=== PATIENT | female | born 1995 | race Caucasian/White ===

== ENCOUNTER 2016-12-31 17:02 | Emergency (ER) | payer SELFPAY ==
[~2016-12-31] VITALS: Ht 161.3 cm; Wt 97.5 kg
[~2016-12-31 17:02] MED LIST: IBUP-1050 PO
[2016-12-31 17:11] VITALS: TEMP 37.2; Ht 161.3 cm; Wt 97.5 kg
[2016-12-31] MEDS ORDERED: KETOROLAC TROMETHAMINE 30 MG/ML VIAL IV STA (18:50)
[2016-12-31] MEDS ORDERED: SODIUM CHLORIDE 0.9% 1000ML 1,000 ML IV STA (18:50)
[2016-12-31] MEDS ORDERED: ONDANSETRON INJ 2 MG/ML 2 ML VIAL IV STA (18:50)
[2016-12-31] MEDS ORDERED: SUCR1TAB29 PO (19:09)
[2016-12-31 19:38] LABS: BASO % 0.4 %; BASO ABS # 0.04 K/uL (0-0.2); COMPLETE YES; EOS % 3.2 %; HEMATOCRIT 40.5 % (37-47); IG% 0.1 %; LYMPH ABS # 3.31 K/uL (1.2-3.4); MEAN CELL VOLUME 89.2 fL (80-100); MEAN CORPUSCULAR HEMOGLOBIN 30.6 pg (25-34); MEAN CORPUSCULAR HGB CONC 34.3 g/dl (32-36); MEAN PLATELET VOLUME 10.4 fL (7.4-10.4); MONO % 6.3 %; PLATELET COUNT 277 K/uL (130-400); RED BLOOD COUNT 4.54 M/uL (4.2-5.4); WHITE BLOOD COUNT 9.46 K/uL (4.8-10.8)
[2016-12-31 19:40] LABS: URINE APPEARANCE TURBID (CLEAR); URINE BILIRUBIN NEG (NEG); URINE COLOR YELLOW; URINE EPITHELIAL CELL AUTO >30 /lpf (0-5); URINE NITRITE NEG (NEG); URINE PH 8.5 (4.5-7.5); URINE SPECIFIC GRAVITY 1.026 (1.000-1.030); UROBILINOGEN NEG (NEG); ZZUR CULT IF INDIC CLEAN CATCH YES
[2016-12-31 19:43] LABS: MANUAL MICROSCOPIC REQUIRED? NO; REVIEW REQ? YES
[2016-12-31 19:48] LABS: PARTIAL THROMBOPLASTIN RATIO 1.1; PROTHROMBIN TIME (PATIENT) 10.9 SECONDS (9.0-12.0)
[2016-12-31 19:50] LABS: SULFASALICYLIC ACID POS (NEG)
[2016-12-31 19:54] LABS: ALT/SGPT 16 U/L (12-78); BLOOD UREA NITROGEN 12 mg/dl (7-18); BUN/CREATININE RATIO 21.3 (10-20); CALCIUM 8.7 mg/dl (8.5-10.1); CARBON DIOXIDE 25 mmol/L (21-32); CHLORIDE 108 mmol/L (98-107); CREATININE 0.56 mg/dl (0.60-1.20); GLUCOSE 83 mg/dl (70-99); POTASSIUM 3.7 mmol/L (3.5-5.1); SODIUM 141 mmol/L (136-145)
[2016-12-31 19:57] LABS: ALKALINE PHOSPHATASE 62 U/L (45-117); AST/SGOT 10 U/L (15-37)
--- NOTE | 2016-12-31 19:58 | DIAGNOSTIC IMAGING REPORT ---
CHEST ONE VIEW PORTABLE HISTORY: Generalized abdominal pain. COMPARISON: None. FINDINGS: The lungs are clear. Cardiac silhouette is normal in size. No pleural effusions. No pneumothorax. IMPRESSION: No acute process. Electronically signed by: Bo Whitehead M.D. 12/31/2016 7:56 PM Dictated Date/Time: 12/31/2016 7:56 PM
--- NOTE | 2016-12-31 20:20 | DIAGNOSTIC IMAGING REPORT ---
ABDOMEN AND PELVIS CT WITHOUT CONTRAST CT DOSE: 1013.96 mGycm HISTORY: Generalized abdominal pain. Left-sided abdominal pain. TECHNIQUE: Multiaxial CT images of the abdomen and pelvis were performed without contrast. COMPARISON STUDY: Abdomen and pelvis CT 09/04/2016. FINDINGS: The lung bases are clear. No bowel wall thickening or obstruction. Normal appendix. The ovaries are stable in size. Trace pelvic free fluid is likely physiologic. The bladder is now well-distended but appears unremarkable. A few punctate calcifications in the deep pelvis likely represent phleboliths. The unenhanced liver, gallbladder, pancreas, spleen, and adrenal glands are unremarkable. No left renal stones or hydronephrosis. There is a punctate stone within the lower pole of the right kidney. No right-sided hydronephrosis. IMPRESSION: 1. A punctate stone within the lower pole of the right kidney. No hydronephrosis. 2. No left renal or ureteral calculi. 3. No definite bowel wall thickening or obstruction.. Normal appendix. 5. Trace pelvic free fluid. This is likely physiologic. Electronically signed by: Bo Whitehead M.D. 12/31/2016 8:18 PM Dictated Date/Time: 12/31/2016 8:08 PM
[2016-12-31] MEDS ORDERED: NITR-5 PO (20:49)
--- NOTE | 2016-12-31 20:49 | EMERGENCY ROOM VISIT NOTE ---
History Report prepared by Kevin: Wilman Wild Under the Supervision of: Dr. Brock Kelly D.O. First contact with patient: 18:45 Chief Complaint: GI ASSESSMENT Stated Complaint: LF SIDE ABD PAIN,VOMITING BLOOD Nursing Triage Summary: Pt presents with left sided abd pain. "It feels tight and I have sharp, shooting pain through my whole left side. I am really constipated." N/V. States last BM was 1.5 weeks ago. Has tried Miralax and a suppository. Pain x 3 days. N/V began today. History of Present Illness The patient is a 21 year old female who presents to the Emergency Room with complaints of constant left sided abdominal pain beginning 3-4 days prior to arrival. She describes the pain as "shooting" and currently rates her discomfort as a 6/10 in severity. The patient associates constipation for a week and a half, nausea, vomiting, and fever with today's symptoms. She states her fever began this morning, and it was 102.5 F. The patient notes her abdominal pain worsens with coughing, laughing, and breathing. She denies anything making her discomfort better. The patient states she has intermittent episodes of similar abdominal pain for the past three years. She notes she has a history of acid reflux and GI bleeding for the past three years, as well. The patient states she has seen a GI doctor, but stated nothing was wrong. She notes she took ibuprofen without relief. The patient denies pain with urination or other urinary symptoms. 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 A total of 10 systems reviewed and were otherwise negative. Past Medical & Surgical Medical Problems: (1) DEPRESSIVE DISORDER NEC Family History Cancer Social History Smoking Status: Current Every Day Smoker Alcohol Use: none Drug Use: none Marital Status: single Occupation Status: employed Current/Historical Medications Scheduled Nitrofurantoin Monohyd Macrocr (Macrobid), 100 MG PO BID Sucralfate (Carafate), 1 GM PO ACHS Scheduled PRN Ibuprofen (Advil), 400 MG PO Q6H PRN for Pain Allergies Coded Allergies: Sulfa Drugs (Unverified Allergy, Intermediate, HIVES and RASH, 06/15/16) Physical Exam Vital Signs Date Time Temp Pulse Resp B/P Pulse Ox O2 Delivery O2 Flow Rate FiO2 12/31/16 19:26 86 16 122/68 99 Room Air 12/31/16 17:11 37.2 92 18 126/82 97 Room Air Physical Exam CONSTITUTIONAL/VITAL SIGNS: Reviewed / noted above. GENERAL: Non-toxic in appearance. INTEGUMENTARY: Warm, dry, and [place]. HEAD: Normocephalic. EYES: without scleral icterus or trauma. ENT/OROPHARYNX: clear and moist. LYMPHADENOPATHY/NECK: Is supple without lymphadenopathy or meningismus. RESPIRATORY: Lungs clear and equal. CARDIOVASCULAR: Regular rate and rhythm. GI/ABDOMEN: Soft and nontender. No organomegaly or pulsatile mass. No rebound or guarding. Normal bowel sounds. EXTREMITIES: Warm and well perfused. BACK: No CVA tenderness. NEUROLOGICAL: Intact without focal deficits. PSYCHIATRIC: normal affect. MUSCULOSKELETAL: Normally developed with good muscle tone. Medical Decision & Procedures ER Provider Diagnostic Interpretation: Radiology results as stated below per my review and radiologist interpretation: CHEST ONE VIEW PORTABLE HISTORY: Generalized abdominal pain. COMPARISON: None. FINDINGS: The lungs are clear. Cardiac silhouette is normal in size. No pleural effusions. No pneumothorax. IMPRESSION: No acute process. Electronically signed by: Bo Whitehead M.D. 12/31/2016 7:56 PM A[address]OMEN AND PELVIS CT WITHOUT CONTRAST CT DOSE: 1013.96 mGycm HISTORY: Generalized abdominal pain. Left-sided abdominal pain. TECHNIQUE: Multiaxial CT images of the abdomen and pelvis were performed without contrast. COMPARISON STUDY: Abdomen and pelvis CT 09/04/2016. FINDINGS: The lung bases are clear. No bowel wall thickening or obstruction. Normal appendix. The ovaries are stable in size. Trace pelvic free fluid is likely physiologic. The bladder is now well-distended but appears unremarkable. A few punctate calcifications in the deep pelvis likely represent phleboliths. The unenhanced liver, gallbladder, pancreas, spleen, and adrenal glands are unremarkable. No left renal stones or hydronephrosis. There is a punctate stone within the lower pole of the right kidney. No right-sided hydronephrosis. IMPRESSION: 1. A punctate stone within the lower pole of the right kidney. No hydronephrosis. 2. No left renal or ureteral calculi. 3. No definite bowel wall thickening or obstruction.. Normal appendix. 5. Trace pelvic free fluid. This is likely physiologic. Electronically signed by: Bo Whitehead M.D. 12/31/2016 8:18 PM Laboratory Results 12/31/16 19:15 Red Blood Count 4.54, Mean Corpuscular Volume 89.2, Mean Corpuscular Hemoglobin 30.6, Mean Corpuscular Hemoglobin Concent 34.3, Mean Platelet Volume 10.4, Neutrophils (%) (Auto) 55.0, Lymphocytes (%) (Auto) 35.0, Monocytes (%) (Auto) 6.3, Eosinophils (%) (Auto) 3.2, Basophils (%) (Auto) 0.4, Neutrophils # (Auto) 5.20, Lymphocytes # (Auto) 3.31, Monocytes # (Auto) 0.60, Eosinophils # (Auto) 0.30, Basophils # (Auto) 0.04 12/31/16 19:15 Test 12/31/16 19:05 12/31/16 19:15 Urine Color YELLOW Urine Appearance TURBID (CLEAR) Urine pH 8.5 (4.5-7.5) Urine Specific [place] 1.026 (1.000-1.030) Urine Protein TRACE (NEG) Urine Glucose (UA) NEG (NEG) Urine Ketones NEG (NEG) Urine Occult Blood NEG (NEG) Urine Nitrite NEG (NEG) Urine Bilirubin NEG (NEG) Urine Urobilinogen NEG (NEG) Urine Leukocyte Esterase LARGE (NEG) Urine WBC (Auto) >30 /hpf (0-5) Urine RBC (Auto) 5-10 /hpf (0-4) Urine Hyaline Casts (Auto) 5-10 /lpf (0-5) Urine Epithelial Cells (Auto) >30 /lpf (0-5) Urine Bacteria (Auto) 4+ (NEG) Urine Pathogenic Casts /lpf (0) Urine Test NEG (NEG) White Blood Count 9.46 K/uL (4.8-10.8) Red Blood Count 4.54 M/uL (4.2-5.4) Hemoglobin 13.9 g/dL (12.0-16.0) Hematocrit 40.5 % (37-47) Mean Corpuscular Volume 89.2 fL (80-100) Mean Corpuscular Hemoglobin 30.6 pg (25-34) Mean Corpuscular Hemoglobin Concent 34.3 g/dl (32-36) Platelet Count 277 K/uL (130-400) Mean Platelet Volume 10.4 fL (7.4-10.4) Neutrophils (%) (Auto) 55.0 % Lymphocytes (%) (Auto) 35.0 % Monocytes (%) (Auto) 6.3 % Eosinophils (%) (Auto) 3.2 % Basophils (%) (Auto) 0.4 % Neutrophils # (Auto) 5.20 K/uL (1.4-6.5) Lymphocytes # (Auto) 3.31 K/uL (1.2-3.4) Monocytes # (Auto) 0.60 K/uL (0.11-0.59) Eosinophils # (Auto) 0.30 K/uL (0-0.5) Basophils # (Auto) 0.04 K/uL (0-0.2) RDW Standard Deviation 41.5 fL (36.4-46.3) RDW Coefficient of Variation 12.8 % (11.5-14.5) Immature Granulocyte % (Auto) 0.1 % Immature Granulocyte # (Auto) 0.01 K/uL (0.00-0.02) Prothrombin Time 10.9 SECONDS (9.0-12.0) Prothromb Time International Ratio 1.0 (0.9-1.1) Activated Partial Thromboplast Time 28.2 SECONDS (21.0-31.0) Partial Thromboplastin Ratio 1.1 Anion Gap 8.0 mmol/L (3-11) Est Creatinine Clear Calc Drug Dose 178.5 ml/min Estimated GFR () > 150.0 Estimated GFR (Non- 133.3 BUN/Creatinine Ratio 21.3 (10-20) Calcium Level 8.7 mg/dl (8.5-10.1) Total Bilirubin 0.3 mg/dl (0.2-1) Direct Bilirubin 0.1 mg/dl (0-0.2) Aspartate Amino Transf (AST/SGOT) 10 U/L (15-37) Alanine Aminotransferase (ALT/SGPT) 16 U/L (12-78) Alkaline Phosphatase 62 U/L (45-117) Total Protein 7.5 gm/dl (6.4-8.2) Albumin 4.1 gm/dl (3.4-5.0) Lipase 88 U/L (73-393) Laboratory results as stated above per my review. Medications Administered Medications (Trade) Dose Ordered Sig/Joby Route Start Time Stop Time Status Last Admin Dose Admin Sodium Chloride (Nss 1000ml) 1,000 ml @ 999 mls/hr Q1H1M STAT IV 12/31/16 18:50 12/31/16 19:50 DC 12/31/16 19:33 999 MLS/HR Ondansetron HCl (Zofran Inj) 4 mg NOW STAT IV 12/31/16 18:50 12/31/16 18:52 DC 12/31/16 19:32 4 MG Ketorolac Tromethamine (Toradol Inj) 30 mg NOW STAT IV 12/31/16 18:50 12/31/16 18:52 DC 12/31/16 19:32 30 MG ED Course 184: Previous medical records were reviewed. The patient was evaluated in room A11B. A complete history and physical examination was performed. 1850: Ordered Toradol Inj 30 mg IV, Zofran Inj 4 mg IV, Sodium Chloride 1,000 ml @ 999 mls/hr IV. 2099: Ordered Macrobid Cap 100 mg PO. 2104: On reevaluation, the patient is doing well. I discussed the results and findings with the patient. She verbalized agreement of the treatment plan. The patient was discharged home. Medical Decision Differential considered: pancreatitis, hepatitis, or acute cholecystitis, AAA, UTI, pyelonephritis, kidney stones, appendicitis, diverticulitis, shingles, bowel obstruction mesenteric ischemia, intussusception,hernia, ovarian torsion, ruptured ovarian cyst,ectopic , . This is a 21-year-old female who presents to the ED with a chief complaint of a left-sided sharp abdominal pain that has been going on for the past 3-4 days. She also feels constipated and she has not had a bowel movement for a week and a half. The patient reports most of these issues as chronic issues. She states the pain is worse with cough and laughing. She states nothing makes it better. She reportedly fever this morning about 102.5. She states that she has had evaluation by GI specialist and they tell her nothing is wrong. These symptoms have been intermittent for several years. Her vital signs are normal. Physical exam did not reveal any tenderness. CT scan of the abdomen and pelvis was negative for acute disease. A chest x-ray was negative for acute disease. CBC and complete metabolic panel were unremarkable. Lipase is negative. test is negative. Urine appears contaminated but could reflect an infection. She was started on Macrobid by mouth. She was felt to be stable for discharge. Impression Primary Impression: UTI (urinary tract infection) Scribe Attestation The scribe's documentation has been prepared under my direction and personally reviewed by me in its entirety. I confirm that the note above accurately reflects all work, treatment, procedures, and medical decision making performed by me. Departure Information Dispostion Home / Self-Care Prescriptions Nitrofurantoin Monohyd Macrocr (Macrobid) 100 Mg Cap 100 MG PO BID, #6 CAP Prov: Brock Kelly D.O. 12/31/16 Referrals No Doctor, Assigned (PCP) Forms HOME CARE DOCUMENTATION FORM, IMPORTANT VISIT INFORMATION Patient Instructions My [facility], UTI Additional Instructions Macrobid as prescribed. Follow-up with your doctor for further care and evaluation in 1-2 days. Return to the emergency department for worsening or new symptoms or any concerns. You have been examined and treated today on an emergency basis only. This is not a substitute for, or an effort to provide, complete comprehensive medical care. It is impossible to recognize and treat all injuries or illnesses in a single emergency department visit. It is therefore important that you follow up closely with your doctor. Call as soon as possible for an appointment.
[2016-12-31] MEDS ORDERED: NITROFURANTOIN MONOHYDRATE 100 MG CAP PO ONE (21:00)
[2016-12-31 21:06] VITALS: BP 125/77; PULSE 81; O2SAT 96
== END 2016-12-31 21:12 | disposition home or self-care (01) ==
LOC: C.EDB 17:03 → C.EDA 21:12
DX: N39.0 Urinary tract infection, site not specified (principal); K59.00 Constipation, unspecified; K21.9 Gastro-esophageal reflux disease without esophagitis; F32.9 Major depressive disorder, single episode, unspecified; Z80.9 Family history of malignant neoplasm, unspecified; F17.210 Nicotine dependence, cigarettes, uncomplicated; Z79.899 Other long term (current) drug therapy

== ENCOUNTER 2017-05-22 19:23 | Emergency (ER) | payer SELFPAY ==
[~2017-05-22] VITALS: Ht 160 cm; Wt 98.9 kg
[~2017-05-22 19:23] MED LIST changes: +NITR-5 PO; +SUCR1TAB29 PO
[2017-05-22 19:32] VITALS: TEMP 36.8; Ht 160 cm; Wt 98.9 kg
[2017-05-22] MEDS ORDERED: HYDROCODONE/HOMATROPINE SYRUP 5MG/1.5MG 5ML UDP PO STA (19:41)
[2017-05-22] MEDS ORDERED: ALBUTEROL HFA 8 GM INHALER INH STA (19:41)
[2017-05-22] MEDS ORDERED: HYCODAN 60ML BOTTLE HOMEPACK PO STA (19:41)
[2017-05-22] MEDS ORDERED: ALBUT/IPRATROP 3MG/0.5MG NEB 3 ML VIAL INH STA (19:41)
[2017-05-22] MEDS ORDERED: DOXYCYCLINE HYCLATE 100 MG CAP PO STA (19:41)
--- NOTE | 2017-05-22 19:52 | EMERGENCY ROOM VISIT NOTE ---
ED Visit Note First contact with patient: 19:36 CHIEF COMPLAINT: cough HISTORY OF PRESENT ILLNESS: This 22 y/o female patient presents to the emergency department complaining of worsening cough which was gradual in onset the patient is coughing up green mucus. No fever or chills. Has recent URI symptoms. No chest pain. No nausea or vomiting. The patient has a history of pneumonia The patient has had a cough and green sputum production. REVIEW OF SYSTEMS: A review of systems was performed with positives and pertinent negatives listed in the history of present illness. All other systems were reviewed and are negative. ALLERGIES: Sulfa drugs MEDICATIONS: Carafate, Advil PMH: Ulcer, pneumonia SOCIAL HISTORY: 1/2 ppd smoker, unemployed, tonsils PHYSICAL EXAM: Vital Signs: Reviewed Nurse's notes. Oxygen saturation was 100% on room air. GENERAL: 22 y/o female, Alert, oriented and coherent. The patient is able to speak in complete sentences. NECK: Supple, non-tender. CHEST: Symmetrical expansion. No retractions No accessory muscle use. HEART: Regular rate and normal heart sounds, no murmur, gallop or rub. LUNGS: Breath sounds equal but significantly diminished in intensity on both sides. Bilateral wheezes heard but no rales or pleuritic rub. SKIN: Capillary refill less than 2 seconds. EXTREMITIES: No swelling, cyanosis or tenderness in the arms or legs. EMERGENCY DEPARTMENT COURSE: I examined the patient. The patient was given an albuterol/atrovent nebulizer treatment and had good improvement in the subjective state, and the breath sounds were louder and clearer on re-exam. Wheezes were decreased. Pt was also given Doxycyline and Hycodan. The patient was discharged in stable condition. DIAGNOSIS: Acute asthma exacerbation DISCHARGE INSTRUCTIONS AND TREATMENT: Problem List Medical Problems: (1) DEPRESSIVE DISORDER NEC Status: Chronic Current/Historical Medications Scheduled Nitrofurantoin Monohyd Macrocr (Macrobid), 100 MG PO BID Sucralfate (Carafate), 1 GM PO ACHS Scheduled PRN Ibuprofen (Advil), 400 MG PO Q6H PRN for Pain Allergies Coded Allergies: Sulfa Drugs (Unverified Allergy, Intermediate, HIVES and RASH, 06/15/16) Vital Signs Date Time Temp Pulse Resp B/P (MAP) Pulse Ox O2 Delivery O2 Flow Rate FiO2 05/22/17 19:34 98 Room Air 05/22/17 19:32 36.8 101 18 133/82 98 Room Air Departure Information Referrals No Doctor, Assigned (PCP) Patient Instructions [facility]
[2017-05-22] MEDS ORDERED: DOXY100C76 PO (19:59)
[2017-05-22 20:36] VITALS: BP 119/76; PULSE 103; O2SAT 99
--- NOTE | 2017-05-22 20:42 | DIAGNOSTIC IMAGING REPORT ---
CHEST ONE VIEW PORTABLE HISTORY: 22 years-old Female acute cough COMPARISON: Portable chest radiograph 12/31/2016 TECHNIQUE: Portable upright AP view of the chest FINDINGS: Cardiac silhouette is within normal limits. No pneumothorax, pleural effusion or focal airspace consolidation. Bones are grossly intact. IMPRESSION: Normal chest radiograph. The above report was generated using voice recognition software. It may contain grammatical, syntax or spelling errors. Electronically signed by: Royer Millan M.D. 05/22/2017 8:41 PM Dictated Date/Time: 05/22/2017 8:40 PM
== END 2017-05-22 20:37 | disposition home or self-care (01) ==
LOC: C.EDB 19:24 → C.EDC 20:37
DX: J45.901 Unspecified asthma with (acute) exacerbation (principal); F32.9 Major depressive disorder, single episode, unspecified; Z87.01 Personal history of pneumonia (recurrent); Z79.899 Other long term (current) drug therapy

== ENCOUNTER 2017-07-13 21:11 | Emergency (ER) | payer SELFPAY ==
[~2017-07-13] VITALS: Ht 161.3 cm; Wt 99.0 kg
[2017-07-13 21:22] VITALS: Ht 161.3 cm; Wt 99.0 kg
[2017-07-13] MEDS ORDERED: ACETAMINOPHEN 500 MG TAB PO STA (21:37)
[2017-07-13] MEDS ORDERED: ONDANSETRON HOME PACK 4MG OD TAB PO ONE (21:45)
[2017-07-13] MEDS ORDERED: ONDANSETRON 4MG OD TAB PO ONE (21:45)
--- NOTE | 2017-07-13 22:01 | DIAGNOSTIC IMAGING REPORT ---
CT SCAN OF THE BRAIN WITHOUT IV CONTRAST CLINICAL HISTORY: Nausea and vomiting. Head injury. COMPARISON STUDY: MRI of the brain dated 06/15/2016. TECHNIQUE: Unenhanced axial CT scan of the brain is performed from the vertex to the skull base. A dose lowering technique was utilized adhering to the principles of ALARA. CT DOSE: 537.48 mGy.cm FINDINGS: Brain parenchyma: The brain parenchyma is normal in appearance. There is no hemorrhage, mass effect, or evidence of acute territorial ischemia by CT criteria. Chiang-white matter is preserved. No extra-axial fluid collection is seen. Ventricles, sulci, cisterns: Normal in configuration. Intracranial vasculature: The visualized intracranial vasculature at the skull base is normal in appearance. Calvarium: There is no depressed calvarial fracture. Sinuses and mastoids: Moderate mucosal thickening is seen in the left sphenoid sinus. Trace mucosal thickening is seen in the right seen on sinus. The remaining visualized paranasal sinuses are clear. The mastoid air cells are well pneumatized. Orbits: The bony orbits are grossly intact. IMPRESSION: No acute intracranial abnormality. Electronically signed by: Mukesh Duncan M.D. 07/13/2017 10:00 PM Dictated Date/Time: 07/13/2017 9:58 PM
--- NOTE | 2017-07-13 22:15 | DIAGNOSTIC IMAGING REPORT ---
RIGHT ELBOW 3 VIEWS CLINICAL HISTORY: Fall with right elbow pain. FINDINGS: 3 views of the right elbow are obtained. No prior studies are available for comparison at the time of dictation. The skeletal structures are well mineralized. There is no radiographic evidence of fracture. The joint spaces are well-maintained. There is no joint effusion. The overlying soft tissues are within normal limits. IMPRESSION: There is no radiographic evidence of right elbow fracture. Electronically signed by: Mukesh Duncan M.D. 07/13/2017 10:14 PM Dictated Date/Time: 07/13/2017 10:13 PM
[2017-07-13 22:39] VITALS: BP 132/76; PULSE 81; TEMP 37.2; O2SAT 98
--- NOTE | 2017-07-13 22:43 | EMERGENCY ROOM VISIT NOTE ---
History First contact with patient: 21:27 Chief Complaint: HEAD INJURY (MINOR) Stated Complaint: RIGHT ELBOW PAIN,HEAD PAIN,CONCUSSION SYMPTOMS History of Present Illness The patient is a 22 year old female who presents to the Emergency Room with complaints of head injury and right elbow pain after wrestling with her friend and hitting her head and landing on her right elbow. Patient had brief loss of consciousness. She states she's been having nausea and vomiting and lightheadedness since then started a few hours ago. No prior head injuries. No cardiac drugs today. Patient describe the headache as throbbing, ranging in severity 5 out of 10 throughout the head. Nothing makes it better or worse. Patient denies chest pain, dyspnea, neck pain, back pain, numbness, tingling, localized weakness, vision problems, balance problems, dental pain, facial pain or any other medical complaints. Review of Systems See HPI for pertinent positives & negatives. A total of 10 systems reviewed and were otherwise negative. Past Medical/Surgical History Medical Problems: (1) DEPRESSIVE DISORDER NEC Family History Cancer Social History Smoking Status: Current Every Day Smoker Alcohol Use: none Drug Use: none Marital Status: single Occupation Status: employed Current/Historical Medications No Active Prescriptions or Reported Meds Physical Exam Vital Signs Date Time Temp Pulse Resp B/P (MAP) Pulse Ox O2 Delivery O2 Flow Rate FiO2 07/13/17 21:50 18 07/13/17 21:22 37.2 85 18 98 Room Air Physical Exam PHYSICAL EXAM: VITALS: Vitals are noted on the nurse's note and reviewed by myself. Vital signs stable. GENERAL: Pleasant female, in no acute distress, nondiaphoretic, well-developed well-nourished. SKIN: The skin was without obvious lacerations or abrasions. Capillary reflex less than 2 seconds. HEAD: Normocephalic atraumatic. EARS: External auditory canals clear, tympanic membranes pearly chiang without erythema or effusion bilaterally. No hemotympanums. No villar sign. No mastoid tenderness. EYES: Pupils equal round and reactive to light and accommodation. Conjunctivae without injection, sclerae without icterus. Extraocular movements intact. NOSE: Patent, turbinates without inflammation or discharge. No sinus tenderness. No septal hematoma or bleeding. FACE: No facial bone tenderness. Full range of motion of the jaw without tenderness. MOUTH: Mucous membranes moist. Pharynx without erythema or exudate. Uvula midline. Airway patent. Tongue does not deviate. NECK: Supple without nuchal rigidity. Cervical spine is nontender. Full range of motion of the neck without tenderness. No JVD. HEART: Regular rate and rhythm without murmurs gallops or rubs. LUNGS: Clear to auscultation bilaterally without wheezes, rales or rhonchi. No dullness to percussion. No retractions or accessory muscle use. No chest wall tenderness. ABDOMEN: Positive bowel sounds x 4. Normal tympanic percussion. Soft, nontender, without masses or organomegaly. No guarding or rebound tenderness. MUSCULOSKELETAL: No tenderness of the thoracic or lumbar spine. Right elbow tender to palpation with increased pain with range of motion, Full range of motion without tenderness to palpation in all other extremities. Strength 4/5 in the right upper extremity, Normal gait. Strength 5/5 throughout. Radial pulses equal present bilaterally, 2+. NEURO: Patient was alert and oriented to person place and time. Normal Mini- Mental status exam. Normal sensation to light and sharp touch. Negative Romberg and pronator drift. Cerebellar function intact. No focal neurological deficits. Medical Decision & Procedures Medications Administered Medications (Trade) Dose Ordered Sig/Joby Route Start Time Stop Time Status Last Admin Dose Admin Acetaminophen (Tylenol Tab) 1,000 mg NOW STAT PO 07/13/17 21:37 07/13/17 21:38 DC 07/13/17 21:43 1,000 MG Ondansetron HCl (Zofran Odt) 4 mg ONE ONCE PO 07/13/17 21:45 07/13/17 21:46 DC 07/13/17 21:43 4 MG Ondansetron HCl (ZOFRAN ODT 4MG Home Pack) 1 homepack UD ONCE PO 07/13/17 21:45 07/13/17 21:46 DC 07/13/17 22:31 1 HOMEPACK ED Course Prior records/ancillary studies reviewed. Triage Nursing notes reviewed. Additional history obtained from friends. The patient's history was concerning for traumatic head injury and elbow injury Differential diagnosis: Etiologies such as concussion, contusion, fracture, subdural hematoma, epidural hematoma, intraparenchymal hemorrhage, as well as other traumatic pathologies were entertained. Physical examination findings: As above. ER treatment provided: P.o. Tylenol Zofran ODT On reassessment the patient felt better. Diagnostics interpreted by me: Imaging studies: RIGHT ELBOW 3 VIEWS CLINICAL HISTORY: Fall with right elbow pain. FINDINGS: 3 views of the right elbow are obtained. No prior studies are available for comparison at the time of dictation. The skeletal structures are well mineralized. There is no radiographic evidence of fracture. The joint spaces are well-maintained. There is no joint effusion. The overlying soft tissues are within normal limits. IMPRESSION: There is no radiographic evidence of right elbow fracture. Electronically signed by: Mukesh Duncan M.D. CT SCAN OF THE BRAIN WITHOUT IV CONTRAST CLINICAL HISTORY: Nausea and vomiting. Head injury. COMPARISON STUDY: MRI of the brain dated 06/15/2016. TECHNIQUE: Unenhanced axial CT scan of the brain is performed from the vertex to the skull base. A dose lowering technique was utilized adhering to the principles of ALARA. CT DOSE: 537.48 mGy.cm FINDINGS: Brain parenchyma: The brain parenchyma is normal in appearance. There is no hemorrhage, mass effect, or evidence of acute territorial ischemia by CT criteria. Chiang-white matter is preserved. No extra-axial fluid collection is seen. Ventricles, sulci, cisterns: Normal in configuration. Intracranial vasculature: The visualized intracranial vasculature at the skull base is normal in appearance. Calvarium: There is no depressed calvarial fracture. Sinuses and mastoids: Moderate mucosal thickening is seen in the left sphenoid sinus. Trace mucosal thickening is seen in the right seen on sinus. The remaining visualized paranasal sinuses are clear. The mastoid air cells are well pneumatized. Orbits: The bony orbits are grossly intact. IMPRESSION: No acute intracranial abnormality. Electronically signed by: Mukesh Duncan M.D. 07/13/2017 10:00 PM Dictated Date/Time: 07/13/2017 9:58 PM It appears the patient has a concussion and elbow injury. I discussed the risks and the benefits of CT scanning. I gave my usual and customary discussion regarding this issue. Patient unremarkable workup as above. She is counseled on head injury signs and symptoms and on the concussion clinic. She is comfortable elbow injuries. She is placed in a sling and neurovascular status is rechecked after placement and is intact. She is advised to take her arm out every few hours and do range of motion exercises as not to develop a frozen shoulder. She is advised to follow-up with family care or concussion clinic this week or here in the ER sooner for headache, fevers, confusion, worsening signs or symptoms or as needed. By the evaluation outlined above emergent etiologies such as fracture, subdural hematoma, epidural hematoma, intraparenchymal hemorrhage, as well as others were deemed relatively unlikely. The pt informed about the findings as listed above. All questions were answered and pleased with the treatment. Return instructions were outlined and the patient was discharged in stable condition. Outpatient Prescription Management: Ian Referral: The patient was referred back to their primary care physician and concussion clinic for follow-up in 2 to 3 days for a recheck of the current condition. Medical Decision as above Head Trauma GCS Score: 15 Medication Reconcilliation Current Medication List: was personally reviewed by me Blood Pressure Screening Patient's blood pressure: Normal blood pressure Impression Primary Impression: Concussion Additional Impression: right elbow injury Departure Information Dispostion Home / Self-Care Condition GOOD Prescriptions No Active Prescriptions or Reported Meds Forms HOME CARE DOCUMENTATION FORM, Work Instructions, Return To Work: 1 day IMPORTANT VISIT INFORMATION Patient Instructions [facility], ED Concussion Additional Instructions Ice compresses for 20 minutes at a time four times daily for 2-3 days. Use the sling as instructed. Remove your arm from the sling 4-6 times a day and move all the joints around to keep them loose. Rest and elevate your injury. Continue current medications. Return to the ER immediately for any numbness, tingling, severe pain, extreme swelling in the extremity or as needed. Call Orthopedics in 5-7 days if symptoms persist to arrange follow up for your injury. Head injury: Read head injury handout and return for any symptoms. Tylenol 1000 mg as needed for pain (Maximum 3000 mg Tylenol in 24 hr period). Avoid alcohol and contact sports/activities for one week and follow up with family doctor prior to returning to these activities if still symptomatic. Ice and elevate head. If your symptoms persist more than a week then follow up with the concussion clinic. Call [phone]. Return to ER sooner for headache, fevers, confusion, worsening signs or symptoms or as needed. Work Instructions Return To Work: 1 day Problem Qualifiers Primary Impression: Concussion Encounter type: initial encounter Loss of consciousness presence/duration: with LOC of 30 min or less Qualified Codes: S06.0X1A - Concussion with loss of consciousness of 30 minutes or less, initial encounter
== END 2017-07-13 22:40 | disposition home or self-care (01) ==
LOC: C.EDB 21:13
DX: S06.0X1A Concussion with loss of consciousness of 30 minutes or less, initial encounter (principal); S59.901A Unspecified injury of right elbow, initial encounter; W50.0XXA Accidental hit or strike by another person, initial encounter; F32.9 Major depressive disorder, single episode, unspecified; F17.200 Nicotine dependence, unspecified, uncomplicated

== ENCOUNTER 2017-08-08 00:09 | Emergency (ER) | payer OTHER ==
[~2017-08-08] VITALS: Ht 160 cm; Wt 101.0 kg
[2017-08-08 00:15] VITALS: TEMP 37; Ht 160 cm; Wt 101.0 kg
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
[2017-08-08 01:35] VITALS: BP 136/77; PULSE 78; O2SAT 100
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
== END 2017-08-08 01:35 | disposition home or self-care (01) ==
LOC: C.EDB 00:10 → C.EDA 01:35
DX: F07.81 Postconcussional syndrome (principal); F17.200 Nicotine dependence, unspecified, uncomplicated; Z91.81 History of falling; Z87.820 Personal history of traumatic brain injury

== ENCOUNTER 2017-11-25 16:42 | Emergency (ER) | payer OTHER ==
[~2017-11-25] VITALS: Ht 161.3 cm; Wt 101.8 kg
[2017-11-25 16:46] VITALS: TEMP 36.9; Ht 161.3 cm; Wt 101.8 kg
[2017-11-25] MEDS ORDERED: MoRPHine SULFATE 4 MG/ML 1 ML CARP\\VIAL IV PRN (17:00)
[2017-11-25] MEDS ORDERED: ONDANSETRON INJ 2 MG/ML 2 ML VIAL IV PRN (17:00)
[2017-11-25] MEDS ORDERED: SODIUM CHLORIDE 0.9% 1000ML 1,000 ML IV ONE (17:00)
--- NOTE | 2017-11-25 17:17 | EMERGENCY ROOM VISIT NOTE ---
History First contact with patient: 16:50 Chief Complaint: ABDOMINAL PAIN Stated Complaint: ABDOMINAL PAIN, VOMITING, DIARRHEA History of Present Illness The patient is a 22 year old female who presents to the Emergency Room with complaints of nausea, vomiting, diarrhea and abdominal pain that started last night. Symptoms started with a sharp, stabbing, constant abdominal pain particularly in the left upper quadrant. Shortly thereafter, she began to throw up. She describes some streaking of blood in her vomit and her diarrhea. This is typical for her. She has a history of GI bleed. She had an endoscopy and colonoscopy performed last year. No abnormalities were found. The patient also describes fever symptoms. She took her temperature at home. He was reportedly 102F. She denies any sick contacts. No recent antibiotic use or travel. Review of Systems 10 system review performed and negative unless noted in HPI or below Past Medical/Surgical History Medical Problems: (1) DEPRESSIVE DISORDER NEC (2) DEPRESSIVE DISORDER NEC Family History Cancer Social History Smoking Status: Current Every Day Smoker Alcohol Use: none Drug Use: none Marital Status: in relationship Housing Status: lives with significant other Occupation Status: employed Current/Historical Medications Scheduled PRN Promethazine Hcl (Phenergan), 25 MG PO Q6H PRN for Nausea Physical Exam Vital Signs Date Time Temp Pulse Resp B/P (MAP) Pulse Ox O2 Delivery O2 Flow Rate FiO2 11/25/17 19:34 61 127/73 98 Room Air 11/25/17 18:27 68 18 131/91 99 11/25/17 17:35 73 18 127/80 98 Room Air 11/25/17 16:46 36.9 80 18 139/87 100 Room Air Physical Exam VITALS: Vitals are noted on the nurse's note and reviewed by myself. Vital signs stable. GENERAL: 22-year-old female, in no acute distress, nondiaphoretic, well- developed well-nourished. SKIN: The skin was without rashes, erythema, edema, or bruising. ] HEAD: Normocephalic atraumatic. MOUTH: Mucous membranes slightly dry. NECK: Supple without nuchal rigidity. No JVD. HEART: Regular rate and rhythm without murmurs gallops or rubs. LUNGS: Clear to auscultation bilaterally without wheezes, rales or rhonchi. No accessory muscle use. ABDOMEN: Positive bowel sounds x 4.Soft, slight tenderness to palpation in the left upper quadrant, without organomegaly. No guarding or rebound tenderness. MUSCULOSKELETAL: No muscle atrophy, erythema, or edema noted.. Strength 5/5 throughout. NEURO: Patient was alert and oriented to person place and time. Normal sensation to touch. No focal neurological deficits. Medical Decision & Procedures ER Provider Diagnostic Interpretation: abd/chest xrays IMPRESSION: 1. No acute process of the chest. 2. Nonobstructive bowel gas pattern without pneumoperitoneum. The above report was generated using voice recognition software. It may contain grammatical, syntax or spelling errors. Electronically signed by: Royer Millan M.D. 11/25/2017 5:38 PM Dictated Date/Time: 11/25/2017 5:36 PM The status of this report is Signed. Draft = Not yet reviewed or approved by Radiologist. Signed = Reviewed and approved by Radiologist. Laboratory Results 11/25/17 17:08 Red Blood Count 4.61, Mean Corpuscular Volume 88.3, Mean Corpuscular Hemoglobin 29.9, Mean Corpuscular Hemoglobin Concent 33.9, Mean Platelet Volume 9.8, Neutrophils (%) (Auto) 49.5, Lymphocytes (%) (Auto) 38.4, Monocytes (%) (Auto) 5.8, Eosinophils (%) (Auto) 5.2, Basophils (%) (Auto) 1.0, Neutrophils # (Auto) 4.11, Lymphocytes # (Auto) 3.18, Monocytes # (Auto) 0.48, Eosinophils # (Auto) 0.43, Basophils # (Auto) 0.08 11/25/17 17:08 Test 11/25/17 17:08 11/25/17 17:15 White Blood Count 8.29 K/uL (4.8-10.8) Red Blood Count 4.61 M/uL (4.2-5.4) Hemoglobin 13.8 g/dL (12.0-16.0) Hematocrit 40.7 % (37-47) Mean Corpuscular Volume 88.3 fL (80-100) Mean Corpuscular Hemoglobin 29.9 pg (25-34) Mean Corpuscular Hemoglobin Concent 33.9 g/dl (32-36) Platelet Count 269 K/uL (130-400) Mean Platelet Volume 9.8 fL (7.4-10.4) Neutrophils (%) (Auto) 49.5 % Lymphocytes (%) (Auto) 38.4 % Monocytes (%) (Auto) 5.8 % Eosinophils (%) (Auto) 5.2 % Basophils (%) (Auto) 1.0 % Neutrophils # (Auto) 4.11 K/uL (1.4-6.5) Lymphocytes # (Auto) 3.18 K/uL (1.2-3.4) Monocytes # (Auto) 0.48 K/uL (0.11-0.59) Eosinophils # (Auto) 0.43 K/uL (0-0.5) Basophils # (Auto) 0.08 K/uL (0-0.2) RDW Standard Deviation 41.2 fL (36.4-46.3) RDW Coefficient of Variation 12.9 % (11.5-14.5) Immature Granulocyte % (Auto) 0.1 % Immature Granulocyte # (Auto) 0.01 K/uL (0.00-0.02) Anion Gap 7.0 mmol/L (3-11) Est Creatinine Clear Calc Drug Dose 169.1 ml/min Estimated GFR () 150.0 Estimated GFR (Non- 129.4 BUN/Creatinine Ratio 13.9 (10-20) Calcium Level 9.0 mg/dl (8.5-10.1) Total Bilirubin 0.4 mg/dl (0.2-1) Aspartate Amino Transf (AST/SGOT) 14 U/L (15-37) Alanine Aminotransferase (ALT/SGPT) 24 U/L (12-78) Alkaline Phosphatase 57 U/L (45-117) Total Protein 7.4 gm/dl (6.4-8.2) Albumin 3.8 gm/dl (3.4-5.0) Globulin 3.6 gm/dl (2.5-4.0) Albumin/Globulin Ratio 1.1 (0.9-2) Lipase 84 U/L (73-393) Urine Color YELLOW Urine Appearance CLOUDY (CLEAR) Urine pH >= 9.0 (4.5-7.5) Urine Specific [place] 1.016 (1.000-1.030) Urine Protein NEG (NEG) Urine Glucose (UA) NEG (NEG) Urine Ketones NEG (NEG) Urine Occult Blood NEG (NEG) Urine Nitrite NEG (NEG) Urine Bilirubin NEG (NEG) Urine Urobilinogen NEG (NEG) Urine Leukocyte Esterase SMALL (NEG) Urine WBC (Auto) 5-10 /hpf (0-5) Urine RBC (Auto) 0-4 /hpf (0-4) Urine Hyaline Casts (Auto) 1-5 /lpf (0-5) Urine Epithelial Cells (Auto) >30 /lpf (0-5) Urine Bacteria (Auto) 1+ (NEG) Urine Test NEG (NEG) Medications Administered Medications (Trade) Dose Ordered Sig/Joby Route Start Time Stop Time Status Last Admin Dose Admin Sodium Chloride 1,000 ml @ 999 mls/hr Q1H1M ONCE IV 11/25/17 17:00 11/25/17 18:00 DC 11/25/17 17:34 999 MLS/HR Oxycodone/ Acetaminophen (Percocet 5-325mg Tab) 1 tab NOW STAT PO 11/25/17 17:50 11/25/17 17:51 DC 11/25/17 18:11 1 TAB Ondansetron HCl (Zofran Odt) 4 mg NOW STAT PO 11/25/17 17:50 11/25/17 17:51 DC 11/25/17 18:10 4 MG Dicyclomine HCl (Bentyl Tab) 20 mg ONE ONCE PO 11/25/17 18:00 11/25/17 18:01 DC 11/25/17 18:27 20 MG ED Course Patient was seen and examined Vital signs including blood pressure were reviewed medications list was verified with patient Labs were obtained, and a saline lock was established The patient was medicated with morphine and Zofran. She was hydrated with 1 L of normal saline. Imaging was performed and reviewed The patient was reassessed. She was tolerating liquids. We discussed the findings of her workup. She declined a rectal exam. She was comfortable being discharged home. I reviewed discharge instructions the patient. They voiced understanding and had no further questions. Medical Decision DIFFERENTIAL DIAGNOSIS: Gastroenteritis, Hepatitis, cholecystitis, cholangitis, biliary colic, pancreatitis, appendicitis, inguinal hernia, nephrolithiasis, inflammatory bowel disease, mesenteric adenitis, peptic ulcer disease, GERD, gastritis, pancreatitis,, bowel obstruction, splenic infarct, diverticulitis, mesenteric ischemia, metabolic, peritonitis, among others. This patient is a 22-year-old female that presents to the emergency department with vomiting, diarrhea, abdominal pain and fever. On exam she had some mild tenderness. There are no signs of an acute abdomen. She is nontoxic in appearance. She is afebrile. There is no leukocytosis. Abdominal films were unremarkable. The patient has had issues with nausea and diarrhea in the past. She had an endoscope and colonoscopy last year. I also reviewed a CT scan from last year. No acute findings were noted. It is possible that the patient has a viral GI illness. The patient did complain of a small amount of blood in her emesis and stool. She refused a rectal exam. Her H&H is stable. The patient was tolerating liquids after receiving antiemetics and fluids in the emergency department. I believe she is stable to be discharged home with close follow-up with her primary care physician in addition to her GI doctor. She is comfortable with this plan. She agrees to return to the emergency department with worsening symptoms. This chart was completed in part utilizing [employer] Speech Voice Recognition software. Attempts were made to minimize the grammatical errors, random word insertions, pronoun errors and incomplete sentences. Any formal questions or concerns about the content, text or information contained within the body of this dictation should be directly addressed to the provider for clarification. Impression Primary Impression: Vomiting and diarrhea Departure Information Dispostion Home / Self-Care Condition GOOD Prescriptions Promethazine Hcl (Phenergan) 25 Mg Tab 25 MG PO Q6H Y for Nausea, #15 TAB Prov: Casi Estrella PA-C 11/25/17 Referrals No Doctor, Assigned (PCP) Patient Instructions ED Diet Vomiting Diarrhea , My [facility] Additional Instructions You have been evaluated in the emergency department for vomiting and diarrhea. This is likely a GI illness that will run its course. Please follow a clear liquid diet for tonight-broth, Gatorade and water. If you are feeling better tomorrow, please advance to bland diet such as crackers and toast. Please take Phenergan 1 tab every 6 hours as needed for nausea Please follow closely with your primary care physician. Call tomorrow morning for a follow-up appointment. It is also recommended that you follow up with your GI doctor Please do not hesitate to return to the emergency department with any new or worsening symptoms; especially, worsening pain, persistent vomiting or fever Work Instructions Return To Work: 1 day
[2017-11-25 17:18] LABS: BASO ABS # 0.08 K/uL (0-0.2); EOS % 5.2 %; EOS ABS # 0.43 K/uL (0-0.5); HEMATOCRIT 40.7 % (37-47); HEMOGLOBIN 13.8 g/dL (12.0-16.0); IG# 0.01 K/uL (0.00-0.02); LYMPH % 38.4 %; LYMPH ABS # 3.18 K/uL (1.2-3.4); MEAN CELL VOLUME 88.3 fL (80-100); MEAN CORPUSCULAR HEMOGLOBIN 29.9 pg (25-34); MEAN CORPUSCULAR HGB CONC 33.9 g/dl (32-36); MEAN PLATELET VOLUME 9.8 fL (7.4-10.4); MONO % 5.8 %; MONO ABS # 0.48 K/uL (0.11-0.59); NEUT % 49.5 %; NEUT ABS # 4.11 K/uL (1.4-6.5); PLATELET COUNT 269 K/uL (130-400); RED CELL DISTRIBUTION WIDTH CV 12.9 % (11.5-14.5); RED CELL DISTRIBUTION WIDTH SD 41.2 fL (36.4-46.3); WHITE BLOOD COUNT 8.29 K/uL (4.8-10.8)
[2017-11-25 17:36] LABS: ALBUMIN 3.8 gm/dl (3.4-5.0); CREATININE 0.6 mg/dl (0.60-1.20); POTASSIUM 3.8 mmol/L (3.5-5.1)
[2017-11-25 17:38] LABS: TOTAL PROTEIN 7.4 gm/dl (6.4-8.2)
--- NOTE | 2017-11-25 17:39 | DIAGNOSTIC IMAGING REPORT ---
ABDOMEN 2VIEW W/PA CHEST RTN HISTORY: 22 years-old Female LUQ abd pain vomiting acute left upper quadrant abdominal pain with vomiting COMPARISON: Chest radiograph 05/22/2017 TECHNIQUE: PA view the chest with erect and supine views of the abdomen FINDINGS: The cardiomediastinal and hilar silhouettes are within normal limits. There is no pneumothorax, pleural effusion, focal airspace consolidation or overt pulmonary edema. The bones of the chest appear to be grossly intact. There is moderate stool volume within the cecum, ascending and transverse colon. Bowel gas pattern is nonobstructive. No pneumatosis or pneumoperitoneum. No definite urolith identified. Probable phleboliths are noted within the pelvis. No fracture. IMPRESSION: 1. No acute process of the chest. 2. Nonobstructive bowel gas pattern without pneumoperitoneum. The above report was generated using voice recognition software. It may contain grammatical, syntax or spelling errors. Electronically signed by: Royer Millan M.D. 11/25/2017 5:38 PM Dictated Date/Time: 11/25/2017 5:36 PM
[2017-11-25] MEDS ORDERED: OXYCODONE/ACETAMINOPHEN 5-325 TAB PO STA (17:50)
[2017-11-25] MEDS ORDERED: ONDANSETRON 4MG OD TAB PO STA (17:50)
[2017-11-25] MEDS ORDERED: DICYCLOMINE HCL 20 MG TAB PO ONE (18:00)
[2017-11-25] MEDS ORDERED: PHENERGAN 25MG HOMEPACK PO ONE (19:15)
[2017-11-25 19:34] VITALS: BP 127/73; PULSE 61; O2SAT 98
[2017-11-25] MEDS ORDERED: PROM25TA9 PO (19:38)
== END 2017-11-25 19:50 | disposition home or self-care (01) ==
LOC: C.EDB 16:46
DX: R11.2 Nausea with vomiting, unspecified (principal); R19.7 Diarrhea, unspecified; R10.12 Left upper quadrant pain; F17.200 Nicotine dependence, unspecified, uncomplicated; Z87.19 Personal history of other diseases of the digestive system; Z80.9 Family history of malignant neoplasm, unspecified

== ENCOUNTER 2017-11-28 13:29 | Emergency (ER) | payer OTHER ==
[~2017-11-28] VITALS: Ht 160 cm; Wt 103.3 kg
[~2017-11-28 13:29] MED LIST changes: -IBUP-1050 PO; -NITR-5 PO; +PROM25TA9 PO; -SUCR1TAB29 PO
[2017-11-28 13:32] VITALS: TEMP 37.3; Ht 160 cm; Wt 103.3 kg
[2017-11-28] MEDS ORDERED: ONDANSETRON INJ 2 MG/ML 2 ML VIAL IV STA (14:08)
[2017-11-28] MEDS ORDERED: SODIUM CHLORIDE 0.9% 1000ML 1,000 ML IV STA (14:08)
[2017-11-28] MEDS ORDERED: MoRPHine SULFATE 10 MG/ML CARP/VIAL IV PRN (14:15)
[2017-11-28] MEDS ORDERED: MoRPHine SULFATE 2 MG/ML CARP ONE ×2 (14:15→15:51)
[2017-11-28 14:27] LABS: BASO % 0.8 %; BASO ABS # 0.08 K/uL (0-0.2); EOS % 3.5 %; EOS ABS # 0.34 K/uL (0-0.5); HEMATOCRIT 42.1 % (37-47); HEMOGLOBIN 14.3 g/dL (12.0-16.0); IG# 0.01 K/uL (0.00-0.02); LYMPH % 32.6 %; LYMPH ABS # 3.18 K/uL (1.2-3.4); MEAN CELL VOLUME 88.3 fL (80-100); MEAN PLATELET VOLUME 9.8 fL (7.4-10.4); MONO % 5.3 %; MONO ABS # 0.52 K/uL (0.11-0.59); NEUT % 57.7 %; NEUT ABS # 5.63 K/uL (1.4-6.5); PLATELET COUNT 278 K/uL (130-400); RED CELL DISTRIBUTION WIDTH CV 12.8 % (11.5-14.5); RED CELL DISTRIBUTION WIDTH SD 41.1 fL (36.4-46.3); WHITE BLOOD COUNT 9.76 K/uL (4.8-10.8)
[2017-11-28] MEDS ORDERED: PROM25TA9 PO (14:30)
[2017-11-28] MEDS ORDERED: OPTIRAY 320 IV PRN (14:30)
[2017-11-28 14:46] LABS: ALT/SGPT 24 U/L (12-78); BLOOD UREA NITROGEN 9 mg/dl (7-18); CALCIUM 9.5 mg/dl (8.5-10.1); CARBON DIOXIDE 27 mmol/L (21-32); GLUCOSE 89 mg/dl (70-99); LIPASE 99 U/L (73-393); POTASSIUM 3.8 mmol/L (3.5-5.1); SODIUM 137 mmol/L (136-145)
[2017-11-28 14:49] LABS: ALKALINE PHOSPHATASE 64 U/L (45-117); AST/SGOT 14 U/L (15-37)
[2017-11-28 15:07] LABS: PTT PATIENT 26.7 SECONDS (21.0-31.0)
--- NOTE | 2017-11-28 16:48 | DIAGNOSTIC IMAGING REPORT ---
ABD/PELVIS IV AND ORAL CONT CT DOSE: 1064.08 mGycm HISTORY: Pain ABDOMINAL PAIN/GI TECHNIQUE: Multiaxial CT images of the abdomen and pelvis were performed following the use of intravenous and oral contrast. A dose lowering technique was utilized adhering to the principles of ALARA. COMPARISON STUDY: 12/31/2016 FINDINGS: The lung bases are clear. The liver, spleen, gallbladder, pancreas, kidneys, and adrenal glands are within normal limits. No bowel wall thickening or obstruction. The pelvic organs are unremarkable. No suspicious lytic or blastic osseous lesions. Normal appendix IMPRESSION: No significant abnormality identified within the abdomen or pelvis. The above report was generated using voice recognition software. It may contain grammatical, syntax or spelling errors. Electronically signed by: Chandu Vanegas M.D. 11/28/2017 4:47 PM Dictated Date/Time: 11/28/2017 4:42 PM
[2017-11-28 17:26] VITALS: BP 135/86; PULSE 78; O2SAT 98
--- NOTE | 2017-11-29 08:12 | EMERGENCY ROOM VISIT NOTE ---
ED Visit Note First contact with patient: 13:46 Chief Complaint: Abdominal pain, nausea/vomiting and diarrhea. History of Present Illness: Ms. Leone is a 22 year-old white female who ambulates into the ED complaining of left upper quadrant abdominal pain with nausea, vomiting and diarrhea. Historically patient reports she has been having ongoing abdominal pain with nausea, vomiting and diarrhea for over a year. She reports last year she was seen by retirement actuary in the [facility] group and an EGD and a colonoscopy was performed but revealed no specific cause. She reports she has not followed up with her retirement actuary. Additionally patient was seen for similar symptoms today in the emergency department 3 days ago and was discharged to home on Phenergan and reports she is having worsening symptoms. Patient reports a gradual onset of left upper quadrant abdominal pain that started approximately 4 days ago. Since that time the pain has been constant and gradually increasing in intensity. The pain is currently described as sharp. The pain is radiating into her back, the left lower quadrant and into the right upper and lower quadrants. She has not identified any aggravating factors related to the pain. She has been using her Phenergan with mild relief of her diarrhea. Associated with her pain she reports she is having bright red streaked diarrhea and constant nausea with intermittent vomiting. She also reports she has been having chills but no olivia fever. Additionally she does report in the past she bruises easily with trauma but has no abnormal bleeding. Patient denies sweats, skin eruptions, skin color changes, upper respiratory tract symptoms, shortness of breath, chest pain, constipation, black/tarry stools, urinary symptoms, hematuria, vaginal bleeding, vaginal discharge. Review of Systems: As noted above in history of present illness. All body systems were reviewed and found to be negative as noted above. Past Medical History: As previously noted, pneumonia, status post tonsillectomy. Current Medications: Phenergan. Allergies to Medications: Sulfa. Social History: Patient is currently employed; she feels safe in her home environment; she admits to tobacco and alcohol use. Physical Examination: Vital Signs: Date Time Temp Pulse Resp B/P (MAP) Pulse Ox O2 Delivery O2 Flow Rate FiO2 11/28/17 17:26 78 16 135/86 98 11/28/17 15:53 71 18 145/94 98 Room Air 11/28/17 14:44 97 11/28/17 14:18 92 18 135/74 98 Room Air 11/28/17 13:32 37.3 93 18 136/89 98 Room Air GENERAL: 22-year-old female in mild distress due to pain, nontoxic-appearing, afebrile and hemodynamically stable. NEUROLOGICAL: Awake, alert and oriented to person, place and time. Answering questions appropriately and following commands. Normal gait. Good hand eye coordination. SKIN: Warm, dry and pink. No soft tissue eruptions or trauma noted. HEENT: Atraumatic and normocephalic. PERRLA. Sclera white and conjunctiva pink. Oral cavity moist and pink. Pharynx is nonerythematous or edematous. Speech normal. No lymphadenopathy. Trachea midline. No jugular venous distention. BACK: No tenderness over the bony spine. No CVA tenderness. THORAX: Lungs sounds are clear to auscultation and equal bilaterally with symmetrical chest wall. No wheezing, rales or rhonchi. No crepitus, tenderness , subcutaneous air or deformities noted. HEART: Regular rate and rhythm. No gallops, rubs or murmurs are appreciated. ABDOMEN: Obese and soft with mild tenderness in the left upper and left lower quadrants. Positive bowel sounds in all quadrants. No guarding, rigidity or organomegaly. RECTAL: No external tags or hemorrhoids. Normal rectal tone. No palpable rectal masses. Trace positive guaiac testing. EXTREMITIES: Moves all extremities well on command and with purpose. All distal neurovascular statuses are intact and equal bilaterally. ED Course: Patient is assessed as noted above. Laboratory Testing: Test 11/28/17 14:02 11/28/17 14:15 Range/Units Urine Color YELLOW Urine Appearance SL CLOUDY CLEAR Urine pH 8.5 4.5-7.5 Urine Specific [place] 1.020 1.000-1.030 Urine Protein NEG NEG Urine Glucose (UA) NEG NEG Urine Ketones NEG NEG Urine Occult Blood NEG NEG Urine Nitrite NEG NEG Urine Bilirubin NEG NEG Urine Urobilinogen NEG NEG Urine Leukocyte Esterase TRACE NEG Urine RBC 0-4 0-4 /hpf Urine WBC 5-10 0-5 /hpf Urine Epithelial Cells >30 0-5 /lpf Urine Bacteria 2+ NEG Urine Test NEG NEG White Blood Count 9.76 4.8-10.8 K/uL Red Blood Count 4.77 4.2-5.4 M/uL Hemoglobin 14.3 12.0-16.0 g/dL Hematocrit 42.1 37-47 % Mean Corpuscular Volume 88.3 80-100 fL Mean Corpuscular Hemoglobin 30.0 25-34 pg Mean Corpuscular Hemoglobin Concent 34.0 32-36 g/dl Platelet Count 278 130-400 K/uL Mean Platelet Volume 9.8 7.4-10.4 fL Neutrophils (%) (Auto) 57.7 % Lymphocytes (%) (Auto) 32.6 % Monocytes (%) (Auto) 5.3 % Eosinophils (%) (Auto) 3.5 % Basophils (%) (Auto) 0.8 % Neutrophils # (Auto) 5.63 1.4-6.5 K/uL Lymphocytes # (Auto) 3.18 1.2-3.4 K/uL Monocytes # (Auto) 0.52 0.11-0.59 K/uL Eosinophils # (Auto) 0.34 0-0.5 K/uL Basophils # (Auto) 0.08 0-0.2 K/uL RDW Standard Deviation 41.1 36.4-46.3 fL RDW Coefficient of Variation 12.8 11.5-14.5 % Immature Granulocyte % (Auto) 0.1 % Immature Granulocyte # (Auto) 0.01 0.00-0.02 K/uL Prothrombin Time 10.0 9.0-12.0 SECONDS Prothromb Time International Ratio 1.0 0.9-1.1 Activated Partial Thromboplast Time 26.7 21.0-31.0 SECONDS Partial Thromboplastin Ratio 1.0 Sodium Level 137 136-145 mmol/L Potassium Level 3.8 3.5-5.1 mmol/L Chloride Level 105 98-107 mmol/L Carbon Dioxide Level 27 21-32 mmol/L Anion Gap 5.0 3-11 mmol/L Blood Urea Nitrogen 9 7-18 mg/dl Creatinine 0.60 0.60-1.20 mg/dl Est Creatinine Clear Calc Drug Dose 168.9 ml/min Estimated GFR () 150.0 Estimated GFR (Non- 129.4 BUN/Creatinine Ratio 14.9 10-20 Random Glucose 89 70-99 mg/dl Calcium Level 9.5 8.5-10.1 mg/dl Total Bilirubin 0.3 0.2-1 mg/dl Direct Bilirubin < 0.1 0-0.2 mg/dl Aspartate Amino Transf (AST/SGOT) 14 15-37 U/L Alanine Aminotransferase (ALT/SGPT) 24 12-78 U/L Alkaline Phosphatase 64 45-117 U/L Total Protein 8.0 6.4-8.2 gm/dl Albumin 4.0 3.4-5.0 gm/dl Lipase 99 73-393 U/L Patient was unable to provide a stool sample. Contrast Abdominal/Pelvic CT: Was reviewed by myself and read by the radiologist showing no significant abnormality within the abdomen or pelvis. Normal-appearing lung bases, liver, spleen, gallbladder, pancreas, kidney and adrenal glands; no bowel wall thickening or obstruction, pelvic organs are unremarkable, normal-appearing appendix, no suspicious lytic or blastic osseous lesions. Patient was hydrated with normal saline and she received a total of 4 mg of morphine IV for pain and 4 mg of Zofran IV. Patient was reassessed multiple times during her stay in the emergency department. Patient's case was reviewed with Dr. Fitzpatrick; we agreed on diagnostic approach, treatment, disposition and plan. Patient was educated about today's findings and instructed on her treatment plan ; she verbalized understanding and agreement with this plan. Clinical Impression: Left upper quadrant abdominal pain. Nausea/vomiting/ diarrhea. Decision-Making: Initially my differential diagnosis I considered C. difficile, colitis, bowel obstruction lower GI bleed, irritable bowel syndrome, Crohn's disease, and other causes. Disposition: Patient discharged home in stable condition accompanied by female friend; prior to departure she was reassessed and subjectively reported she was feeling slightly better and rated her discomfort 5/10 and reported resolution of nausea and had no additional episodes of diarrhea. Plan: Patient was encouraged to use 650 mg of acetaminophen every 3 hours as needed for pain and to avoid NSAID medications. Patient is encouraged to avoid other gastrointestinal irritants. Patient was encouraged to use a bland diet for 48 hours. Patient was encouraged to use her prescribed Phenergan for nausea/vomiting. Patient was encouraged to use [id number] Imodium for diarrhea. Patient was encouraged to collect and return stool sample for testing. Patient was encouraged to contact Dr. Stallworth office and request follow-up care and treatment. Patient was signed off of work for 2 days. Patient was encouraged to return the ED for worsening/uncontrolled pain, worsening bloody stools, black/tarry stools, any other abnormal bleeding, fevers or any new/concerning symptoms. Patient was encouraged to follow-up with personal physician for recheck in 1-2 days. Patient was encouraged return the ED for worsening symptoms, fevers, or any new/ concerning symptoms.
== END 2017-11-28 17:26 | disposition home or self-care (01) ==
LOC: C.EDB 13:30
DX: R10.12 Left upper quadrant pain (principal); R11.2 Nausea with vomiting, unspecified; R19.7 Diarrhea, unspecified

== ENCOUNTER 2017-12-28 10:51 | Emergency (ER) | payer OTHER ==
[~2017-12-28] VITALS: Ht 160 cm; Wt 106.4 kg
[2017-12-28 11:01] VITALS: TEMP 36.8; Ht 160 cm; Wt 106.4 kg
--- NOTE | 2017-12-28 11:41 | DIAGNOSTIC IMAGING REPORT ---
L FOOT MIN 3 VIEWS ROUTINE CLINICAL HISTORY: Left foot pain COMPARISON: None. DISCUSSION: No fractures or dislocations are visualized. There is a prominent medial process of the navicular. There is no erosive disease. IMPRESSION: No acute fractures or dislocations identified. Electronically signed by: Stephen Garcia M.D. 12/28/2017 11:40 AM Dictated Date/Time: 12/28/2017 11:39 AM
--- NOTE | 2017-12-28 11:45 | DIAGNOSTIC IMAGING REPORT ---
L KNEE 3 VIEWS CLINICAL HISTORY: 22 years-old Female presenting with L foot/knee pain. TECHNIQUE: Frontal, lateral, and sunrise views of the left knee were obtained. COMPARISON: 09/23/2016. FINDINGS: No acute fracture or malalignment. No gross evidence of a knee joint effusion. Knee joint congruent. No advanced degenerative change. No radiographic soft tissue abnormality. IMPRESSION: Normal radiographs of the left knee. Electronically signed by: Elias Basilio M.D. 12/28/2017 11:44 AM Dictated Date/Time: 12/28/2017 11:43 AM
[2017-12-28 12:28] VITALS: BP 117/73; PULSE 71; O2SAT 98
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
== END 2017-12-28 12:30 | disposition home or self-care (01) ==
LOC: C.EDB 10:53 → C.EDD 12:30
DX: S89.92XA Unspecified injury of left lower leg, initial encounter (principal); W03.XXXA Other fall on same level due to collision with another person, initial encounter

== ENCOUNTER 2017-12-30 22:24 | Emergency (ER) | payer SELFPAY ==
[~2017-12-30] VITALS: Ht 161.3 cm; Wt 107.9 kg
[2017-12-30 22:27] VITALS: TEMP 37.2; Ht 161.3 cm; Wt 107.9 kg
[2017-12-30] MEDS ORDERED: ONDANSETRON INJ 2 MG/ML 2 ML VIAL IV STA (22:38)
[2017-12-30] MEDS ORDERED: GI COCKTAIL PO STA (22:38)
[2017-12-30] MEDS ORDERED: LIDOCAINE HCL 2% VISC SOLN 20 ML UDC ONE (22:59)
[2017-12-30] MEDS ORDERED: ALUMINUM/MAGNESIUM SUSP 30 ML UDC ONE (22:59)
[2017-12-30 23:49] LABS: BASO % 0.4 %; BASO ABS # 0.05 K/uL (0-0.2); EOS ABS # 0.39 K/uL (0-0.5); HEMATOCRIT 40.2 % (37-47); HEMOGLOBIN 13.5 g/dL (12.0-16.0); IG# 0.03 K/uL (0.00-0.02); LYMPH % 33.1 %; LYMPH ABS # 4.36 K/uL (1.2-3.4); MEAN CELL VOLUME 87.6 fL (80-100); MEAN CORPUSCULAR HEMOGLOBIN 29.4 pg (25-34); MEAN CORPUSCULAR HGB CONC 33.6 g/dl (32-36); MONO % 6.5 %; MONO ABS # 0.86 K/uL (0.11-0.59); NEUT % 56.8 %; PLATELET COUNT 305 K/uL (130-400); RED CELL DISTRIBUTION WIDTH SD 41.6 fL (36.4-46.3); WHITE BLOOD COUNT 13.19 K/uL (4.8-10.8)
[2017-12-31 00:09] LABS: ALBUMIN 3.7 gm/dl (3.4-5.0); ALT/SGPT 16 U/L (12-78); AST/SGOT 9 U/L (15-37); BLOOD UREA NITROGEN 15 mg/dl (7-18); CALCIUM 8.8 mg/dl (8.5-10.1); CARBON DIOXIDE 26 mmol/L (21-32); CREATININE 0.77 mg/dl (0.60-1.20); GLUCOSE 87 mg/dl (70-99); LIPASE 93 U/L (73-393); POTASSIUM 3.6 mmol/L (3.5-5.1); SODIUM 139 mmol/L (136-145)
[2017-12-31 00:18] LABS: ALKALINE PHOSPHATASE 54 U/L (45-117); TOTAL PROTEIN 7.7 gm/dl (6.4-8.2)
[2017-12-31] MEDS ORDERED: METR-163 PO (01:11)
--- NOTE | 2017-12-31 01:13 | EMERGENCY ROOM VISIT NOTE ---
History First contact with patient: 22:29 Chief Complaint: ABDOMINAL PAIN Stated Complaint: SOB, CHEST PAINS, TIGHTNESS IN UPPER ABDOMEN Nursing Triage Summary: Patient reports upper abdominal pain and shortness of breath. Patient just started a new medication for IBS and isn't sure if that is what is causing the problems. History of Present Illness The patient is a 22 year old female who presents to the Emergency Room with complaints of shortness of breath and upper abdominal pain/bloating which started shortly after taking dicyclomine tonight. The patient reports that she was recently prescribed dicyclomine by GI for presumed IBS. She has had issues with abdominal pain and loose stools for some time. She states that she took this for the first time today and about 40 minutes afterward, she felt short of breath with tightness in her right chest and upper abdominal pain/bloating. She states it is difficult to take a full breath. She rates her overall discomfort an 8/10. She has been nauseous and had an episode of vomiting earlier. She states that her recent bowel movements have been loose, but this is normal for her. She denies fever/chills or urinary symptoms. She denies blood in her stools or vomit. Review of Systems A complete 10 point review of systems was reviewed with the patient with pertinent positives and negatives as per history of present illness. All else were negative. Past Medical/Surgical History Medical Problems: (1) DEPRESSIVE DISORDER NEC (2) DEPRESSIVE DISORDER NEC Family History Cancer Social History Smoking Status: Current Every Day Smoker Alcohol Use: none Drug Use: none Marital Status: in relationship Housing Status: lives with significant other Occupation Status: employed Current/Historical Medications Scheduled Metronidazole (Flagyl), 500 MG PO BID Physical Exam Vital Signs Date Time Temp Pulse Resp B/P (MAP) Pulse Ox O2 Delivery O2 Flow Rate FiO2 12/31/17 01:21 98 18 148/92 98 18 22:27 37.2 109 20 152/94 99 Room Air Physical Exam VITALS: Vitals are noted on the nurse's note and reviewed by myself. GENERAL: This is a 22-year-old female, in no acute distress, nondiaphoretic, well-developed well-nourished. SKIN: The skin was without rashes. HEAD: Normocephalic atraumatic. EARS: External auditory canals clear, tympanic membranes pearly bustamante without erythema or effusion bilaterally. EYES: Pupils equal round and reactive to light and accommodation. Extraocular movements intact. NOSE: Patent, turbinates without inflammation or discharge. No sinus tenderness. MOUTH: Mucous membranes moist. Tonsils are not enlarged. Pharynx without erythema or exudate. NECK: Supple without nuchal rigidity. No lymphadenopathy. HEART: Regular rate and rhythm without murmurs gallops or rubs. LUNGS: Clear to auscultation bilaterally without wheezes, rales or rhonchi. No retractions or accessory muscle use. ABDOMEN: Positive bowel sounds x 4. Soft, mild tenderness to palpation in the upper abdomen. No guarding or rebound tenderness. NEURO: Patient was alert and oriented to person place and time. Medical Decision & Procedures ER Provider Diagnostic Interpretation: CHEST 1 VIEW: No acute cardiopulmonary abnormalities. No infiltrates. Laboratory Results 12/30/17 22:50 Red Blood Count 4.59, Mean Corpuscular Volume 87.6, Mean Corpuscular Hemoglobin 29.4, Mean Corpuscular Hemoglobin Concent 33.6, Mean Platelet Volume 10.0, Neutrophils (%) (Auto) 56.8, Lymphocytes (%) (Auto) 33.1, Monocytes (%) (Auto) 6.5, Eosinophils (%) (Auto) 3.0, Basophils (%) (Auto) 0.4, Neutrophils # (Auto) 7.50, Lymphocytes # (Auto) 4.36, Monocytes # (Auto) 0.86, Eosinophils # (Auto) 0.39, Basophils # (Auto) 0.05 12/30/17 22:50 Test 12/30/17 22:50 White Blood Count 13.19 K/uL (4.8-10.8) Red Blood Count 4.59 M/uL (4.2-5.4) Hemoglobin 13.5 g/dL (12.0-16.0) Hematocrit 40.2 % (37-47) Mean Corpuscular Volume 87.6 fL (80-100) Mean Corpuscular Hemoglobin 29.4 pg (25-34) Mean Corpuscular Hemoglobin Concent 33.6 g/dl (32-36) Platelet Count 305 K/uL (130-400) Mean Platelet Volume 10.0 fL (7.4-10.4) Neutrophils (%) (Auto) 56.8 % Lymphocytes (%) (Auto) 33.1 % Monocytes (%) (Auto) 6.5 % Eosinophils (%) (Auto) 3.0 % Basophils (%) (Auto) 0.4 % Neutrophils # (Auto) 7.50 K/uL (1.4-6.5) Lymphocytes # (Auto) 4.36 K/uL (1.2-3.4) Monocytes # (Auto) 0.86 K/uL (0.11-0.59) Eosinophils # (Auto) 0.39 K/uL (0-0.5) Basophils # (Auto) 0.05 K/uL (0-0.2) RDW Standard Deviation 41.6 fL (36.4-46.3) RDW Coefficient of Variation 13.0 % (11.5-14.5) Immature Granulocyte % (Auto) 0.2 % Immature Granulocyte # (Auto) 0.03 K/uL (0.00-0.02) D-Dimer 350 ug/L FEU (0-500) Urine Color YELLOW Urine Appearance CLOUDY (CLEAR) Urine pH 7.0 (4.5-7.5) Urine Specific [place] 1.024 (1.000-1.030) Urine Protein NEG (NEG) Urine Glucose (UA) NEG (NEG) Urine Ketones NEG (NEG) Urine Occult Blood NEG (NEG) Urine Nitrite NEG (NEG) Urine Bilirubin NEG (NEG) Urine Urobilinogen NEG (NEG) Urine Leukocyte Esterase SMALL (NEG) Urine WBC (Auto) /hpf (0-5) Urine RBC (Auto) /hpf (0-4) Urine Hyaline Casts (Auto) /lpf (0-5) Urine Epithelial Cells (Auto) /lpf (0-5) Urine Bacteria (Auto) (NEG) Urine RBC 0-4 /hpf (0-4) Urine WBC 10-30 /hpf (0-5) Urine Epithelial Cells 10-20 /lpf (0-5) Urine Bacteria 2+ (NEG) Urine Trichomonas PRESENT (NONE PRSENT) Urine Test NEG (NEG) Anion Gap 8.0 mmol/L (3-11) Est Creatinine Clear Calc Drug Dose 136.2 ml/min Estimated GFR () 127.0 Estimated GFR (Non- 109.6 BUN/Creatinine Ratio 20.0 (10-20) Calcium Level 8.8 mg/dl (8.5-10.1) Total Bilirubin 0.3 mg/dl (0.2-1) Aspartate Amino Transf (AST/SGOT) 9 U/L (15-37) Alanine Aminotransferase (ALT/SGPT) 16 U/L (12-78) Alkaline Phosphatase 54 U/L (45-117) Troponin I < 0.015 ng/ml (0-0.045) Total Protein 7.7 gm/dl (6.4-8.2) Albumin 3.7 gm/dl (3.4-5.0) Globulin 4.0 gm/dl (2.5-4.0) Albumin/Globulin Ratio 0.9 (0.9-2) Lipase 93 U/L (73-393) Date/Time Source Procedure Growth Status 12/30/17 22:50 Urine , Clean Catch Urine Culture - Final MORE THAN THREE TYPES OF ORGANISMS MA... Complete Medications Administered Medications (Trade) Dose Ordered Sig/Joby Route Start Time Stop Time Status Last Admin Dose Admin Miscellaneous Medication (Gi Cocktail) 24 ml NOW STAT PO 12/30/17 22:38 12/30/17 22:40 DC 12/30/17 23:03 24 ML Ondansetron HCl (Zofran Inj) 4 mg NOW STAT IV 12/30/17 22:38 12/30/17 22:40 DC 12/30/17 23:03 4 MG Al Hydroxide/Mg Hydroxide (Maalox Susp) 30 ml STK-MED ONCE .ROUTE 12/30/17 22:59 12/30/17 23:00 DC 12/30/17 23:03 30 ML Lidocaine HCl (Viscous Lidocaine 2% Soln) 20 ml STK-MED ONCE .ROUTE 12/30/17 22:59 12/30/17 23:00 DC 12/30/17 23:03 20 ML ECG Per My Interpretation Indication: abdominal pain Rate (beats per minute): 89 Rhythm: normal sinus Findings: no acute ischemic change, no ectopy Change: no significant change Medical Decision Differential diagnosis includes pulmonary embolism, peptic ulcer disease, gastritis, pneumonia, medication reaction, among others. The patient is a 22-year-old female who presents today complaining of shortness of breath and upper abdominal pain after taking Bentyl this evening. Labs revealed leukocytosis of 13,000, possibly secondary to infection or stress. There are no concerning electrolyte abnormalities. D-dimer was not elevated. Chest x-ray was unremarkable. I was notified by lab that there were trichomonas seen in the patient's urinalysis. I informed the patient of this. She states that she actually had a pelvic exam performed today. She will be treated for this and I advised treatment with Rocephin and Zithromax, but she declined this. She states that cultures were done today and she would rather wait on these results. She will follow-up with her HAND CANDLE DIPPER. She declined additional pelvic exam tonight. Patient was advised to stop the Bentyl. The patient's case was reviewed with Dr. Jones, ED attending physician, who agreed with my assessment and treatment plan. Based on the patient's presentation and work up, I feel the patient is stable for outpatient treatment. The patient was educated to return to the emergency department for any worsening of their current condition or new/concerning symptoms. She will follow up with her HAND CANDLE DIPPER and ceramic painter. Medication Reconcilliation Current Medication List: was personally reviewed by me Blood Pressure Screening Patient's blood pressure: Elevated blood pressure Blood pressure disposition: Elevated BP felt to be situational Impression Primary Impression: Upper abdominal pain Departure Information Dispostion Home / Self-Care Condition GOOD Prescriptions Metronidazole (Flagyl) 500 Mg Tab 500 MG PO BID for 7 Days, #14 TAB Prov: Martha Krishna .SAMMY 12/31/17 Referrals Liborio Logan M.D. (PCP) Patient Instructions My [facility] Additional Instructions You have been treated in the Emergency Department for your Abdominal Pain. Laboratory results and imaging studies have ruled out any emergent causes for your abdominal pain which would warrant admission or surgery. You were prescribed Flagyl to be taken twice daily as prescribed. This is an antibiotic. All antibiotics have the potential to cause diarrhea. Stop this medication and contact a medical provider if you were to develop any significant adverse side effects including: wheezing, shortness of breath, passing out, vomiting, or a diffuse rash. Always take antibiotics as directed and COMPLETE the ENTIRE course regardless of the improvement of your symptoms. Do not drink any alcohol while taking this medication, as it will make you very ill. For pain control, you can use the following [id number] medicines (if >12 yo): - Regular strength (325mg/tab) Tylenol (acetaminophen) 2 tabs every 4-6 hours as needed. Do not exceed 12 tablets in a 24 hour period. Avoid taking more than 4 grams (4000 mg) of Tylenol per day. This includes any other sources of acetaminophen you may take on a regular basis. - Regular strength (200 mg/tab) Advil (ibuprofen) 1-2 tabs every 4-6 hours as needed. Do not exceed a dose of 3200 mg per day. Drink plenty of water and stay well hydrated. As with any trip to the Emergency Department, you should follow-up with your Primary Care Provider from today's visit. You also need to follow-up with your certified alcohol and drug counselor as discussed. Return to the emergency department if your symptoms persist despite treatment plan outlined above or if the following symptoms occur: Worsening pain, fever, vomiting or other new/concerning symptoms.
[2017-12-31 01:21] VITALS: BP 148/92; PULSE 98; O2SAT 98
--- NOTE | 2017-12-31 05:19 | DIAGNOSTIC IMAGING REPORT ---
CHEST ONE VIEW PORTABLE CLINICAL HISTORY: 22 years-old Female presenting with upper abdominal/right chest pain. TECHNIQUE: Portable upright AP view of the chest was obtained. COMPARISON: 11/25/2017. FINDINGS: Cardiomediastinal silhouette normal. Lungs and pleural spaces clear. Osseous structures normal. Upper abdomen normal. IMPRESSION: 1. No acute cardiopulmonary disease. Electronically signed by: Elias Basilio M.D. 12/31/2017 5:17 AM Dictated Date/Time: 12/31/2017 5:15 AM
== END 2017-12-31 01:19 | disposition home or self-care (01) ==
LOC: C.EDB 22:25
DX: R10.10 Upper abdominal pain, unspecified (principal); F17.200 Nicotine dependence, unspecified, uncomplicated

== ENCOUNTER 2018-02-03 10:41 | Emergency (ER) | payer SELFPAY ==
[~2018-02-03] VITALS: Ht 160 cm; Wt 106.0 kg
[2018-02-03 10:44] VITALS: TEMP 36.8; Ht 160 cm; Wt 106.0 kg
[2018-02-03] MEDS ORDERED: KETOROLAC TROMETHAMINE 60 MG/2 ML VIAL IM STA (10:57)
[2018-02-03] MEDS ORDERED: MoRPHine SULFATE 10 MG/ML CARP/VIAL IM STA (10:57)
[2018-02-03] MEDS ORDERED: MoRPHine SULFATE 4 MG/ML 1 ML CARP\\VIAL ONE (11:06)
--- NOTE | 2018-02-03 11:24 | DIAGNOSTIC IMAGING REPORT ---
LUMBAR SPINE 2 OR 3 VIEWS CLINICAL HISTORY: 22 years-old Female presenting with lower back pain . TECHNIQUE: Frontal, lateral, and coned in lateral views of lumbar spine were obtained. COMPARISON: 11/07/2015. FINDINGS: No scoliosis. Normal lumbar lordosis. Vertebral bodies maintain normal height and alignment. Intervertebral disc heights preserved. No radiographic evidence of compression deformity or subluxation. Osseous neural foramina are patent. Visualized portion of the abdomen normal. IMPRESSION: Normal radiographic examination of the lumbar spine. Electronically signed by: Elias Basilio M.D. 02/03/2018 11:23 AM Dictated Date/Time: 02/03/2018 11:22 AM
[2018-02-03] MEDS ORDERED: PRED20TA2 PO (13:30)
[2018-02-03 14:14] VITALS: BP 122/84; PULSE 82; O2SAT 99
--- NOTE | 2018-02-03 16:58 | EMERGENCY ROOM VISIT NOTE ---
History Report prepared by Kevin: Juan Luis Nair Under the Supervision of: Dr. Sincere Walker D.O. First contact with patient: 10:46 Chief Complaint: BACK PAIN Stated Complaint: BACK PAIN History of Present Illness The patient is a 22 year old female who presents to the Emergency Room with complaints of constant lower back pain beginning yesterday. The patient states that she was recently push mowing her lawn and developed lower back pain yesterday when she was sitting. She notes that her pain is in her left side to her middle back. She also complains of mild right leg pain. She denies any tingling/numbness in her legs/groin, abdominal pain, nausea, vomiting, changes in her bladder, CP, SOB, and urinary symptoms. She also denies any recent trauma and falls. She reports that she has not had any similar symptoms in the past. The patient states that she has no history of cancer. She notes that her last normal menstrual period was four weeks ago. She rates her pain as a 6/10. Pain is worsened with twisting turning bending and lifting. Source of History: patient Onset: yesterday Position: back (lower) Symptom Intensity: 6/10 Timing: constant Associated Symptoms: No chest pain, No SOB, No nausea, No vomiting, No abdominal pain, No urinary symptoms Note: The patient also complains of mild right leg pain. She denies any tingling/ numbness in her legs/groin and change in her bladder. Review of Systems See HPI for pertinent positives & negatives. A total of 10 systems reviewed and were otherwise negative. Past Medical & Surgical Medical Problems: (1) DEPRESSIVE DISORDER NEC (2) DEPRESSIVE DISORDER NEC Surgical Problems: (1) Hx of tonsillectomy Family History Cancer Social History Smoking Status: Current Every Day Smoker Alcohol Use: none Drug Use: none Marital Status: single Housing Status: lives with significant other Occupation Status: employed Current/Historical Medications Scheduled Prednisone (Prednisone Tab), 20 MG PO DAILY Allergies Coded Allergies: Sulfa Drugs (Unverified Allergy, Intermediate, HIVES and RASH, 12/28/17) Physical Exam Vital Signs Date Time Temp Pulse Resp B/P (MAP) Pulse Ox O2 Delivery O2 Flow Rate FiO2 02/03/18 14:14 82 20 122/84 99 02/03/18 12:46 72 20 115/76 100 Room Air 02/03/18 10:44 36.8 90 20 125/76 97 Room Air Physical Exam GENERAL: Sitting up in bed, alert, well appearing, well nourished, no distress, non-toxic EYE EXAM: normal conjunctiva. OROPHARYNX: no exudate, no erythema, lips, buccal mucosa, and tongue normal and mucous membranes are moist NECK: supple, no nuchal rigidity, no adenopathy, non-tender LUNGS: Clear to auscultation. Normal chest wall mechanics HEART: no murmurs, S1 normal and S2 normal ABDOMEN: abdomen soft, non-tender, normo-active bowel sounds, no masses, no rebound or guarding. BACK: Back is symmetrical on inspection and there is no deformity, no midline tenderness, no CVA tenderness, acute reproducible tenderness in the lower lumbar left paraspinal region. SKIN: no rashes and no bruising UPPER EXTREMITIES: upper extremities are grossly normal. LOWER EXTREMITIES: No pitting edema. Flexion and extension of the hips, knees, ankles, and EHL 5/5 bilaterally. Gross sensation is intact. DPs are 2/4 bilateral. Ambulates without difficulty. NEURO EXAM: Normal sensorium, cranial nerves II-XII grossly intact, normal speech, no gross weakness of arms Medical Decision & Procedures ER Provider Diagnostic Interpretation: Radiology results as stated below per my review and the radiologist's interpretation: LUMBAR SPINE 2 OR 3 VIEWS FINDINGS: No scoliosis. Normal lumbar lordosis. Vertebral bodies maintain normal height and alignment. Intervertebral disc heights preserved. No radiographic evidence of compression deformity or subluxation. Osseous neural foramina are patent. Visualized portion of the abdomen normal. IMPRESSION: Normal radiographic examination of the lumbar spine. Electronically signed by: Elias Basilio M.D. 02/03/2018 11:23 AM Laboratory Results Test 02/03/18 10:57 02/03/18 11:00 Urine Color YELLOW Urine Appearance CLOUDY (CLEAR) Urine pH 5.0 (4.5-7.5) Urine Specific Hollins 1.023 (1.000-1.030) Urine Protein NEG (NEG) Urine Glucose (UA) NEG (NEG) Urine Ketones NEG (NEG) Urine Occult Blood NEG (NEG) Urine Nitrite NEG (NEG) Urine Bilirubin NEG (NEG) Urine Urobilinogen NEG (NEG) Urine Leukocyte Esterase SMALL (NEG) Urine WBC (Auto) 10-30 /hpf (0-5) Urine RBC (Auto) 0-4 /hpf (0-4) Urine Hyaline Casts (Auto) 1-5 /lpf (0-5) Urine Epithelial Cells (Auto) >30 /lpf (0-5) Urine Bacteria (Auto) 1+ (NEG) Urine Pathogenic Casts /lpf (0) Laboratory results per my review. Medications Administered Medications (Trade) Dose Ordered Sig/Joby Route Start Time Stop Time Status Last Admin Dose Admin Ketorolac Tromethamine (Toradol Inj) 60 mg NOW STAT IM 02/03/18 10:57 02/03/18 10:58 DC 02/03/18 11:09 60 MG Prednisone (PredniSONE TAB) 50 mg ONE PO 02/03/18 11:00 02/03/18 16:05 DC 02/03/18 11:47 50 MG Morphine Sulfate (MoRPHine SULFATE INJ) 4 mg STK-MED ONCE .ROUTE 02/03/18 11:06 02/03/18 11:07 DC 02/03/18 11:08 4 MG ED Course ED COURSE: Vital signs were reviewed and were shown to be normal. The patients medical record was reviewed The above diagnostic studies were performed and reviewed. ED treatments and interventions as stated above. 1050: The patient was evaluated in room C4. A complete history and physical examination was performed. 1057: Toradol Inj 60mg IM 1106: Morphine Sulfate 4mg IM 1258: I reevaluated and updated the patient. 1327: I rechecked the patient. She states that she has no urinary symptoms. She notes that her pain worsens with twisting and turning. 1414: Upon reevaluation, the patient is stable. I discussed my findings with the patient and she understands and agrees with the treatment plan. Based on the patients age, coexisting illnesses, exam and lab findings the decision to treat as an outpatient was made. The patient remained stable while under my care. The patient appeared well at the time of discharge. Medical Decision Differential diagnoses includes but is not limited to lumbar radiculopathy, kidney stone, muscle strain, facture, cauda equina, mass, and disc herniation. Patient is a 20-year-old female that presents to ER with left lower back pain worsened with movement. She is acute reproducible plane. No red flags. X- rays were unremarkable. Neurologically intact. Able to ambulate without difficulty. No signs of cauda equina. UA was obtained and was contaminated. was negative. No urinary complaints. She is updated at bedside discharge follow-up PCP as an outpatient for muscle skeletal back pain. She was given IM Toradol and morphine. Discussed with Pt concerning signs and symptoms to watch out for. Pt was instructed to follow up with their PCP and discussed with the patient their option to return to the ED at anytime for persistent or worsening symptoms. The appropriate anticipatory guidance and out- patient management, including indications for return to the emergency department , were explained at length to the patient and understood. Medication Reconcilliation Current Medication List: was personally reviewed by me Impression Primary Impression: Lumbar radiculopathy Additional Impression: Back pain Scribe Attestation The scribe's documentation has been prepared under my direction and personally reviewed by me in its entirety. I confirm that the note above accurately reflects all work, treatment, procedures, and medical decision making performed by me. Departure Information Dispostion Home / Self-Care Prescriptions Prednisone (Prednisone Tab) 20 Mg Tab 20 MG PO DAILY, #5 TAB Prov: Sincere Walker, 02/03/18 Referrals Liborio Logan M.D. (PCP) Forms HOME CARE DOCUMENTATION FORM, IMPORTANT VISIT INFORMATION Patient Instructions My [facility] Additional Instructions Please follow up with your primary care doctor with in the next 24 hours. Any worsening of your symptoms, please return to the ED immediately. This includes any fevers greater than 100.4, worsening pain, chest pain, shortness breath, persistent nausea, vomiting, weakness or numbness in your arms or legs, unable to eat or drink, or any other concerning signs or symptoms from your standpoint. No heavy lifting. Please take Tylenol or Motrin as needed for pain. Problem Qualifiers Additional Impression: Back pain Back pain location: low back pain Chronicity: unspecified Back pain laterality: unspecified Sciatica presence: unspecified whether sciatica present Qualified Codes: M54.5 - Low back pain
== END 2018-02-03 14:17 | disposition home or self-care (01) ==
LOC: C.EDB 10:42 → C.EDC 14:17
DX: M54.16 Radiculopathy, lumbar region (principal); F17.200 Nicotine dependence, unspecified, uncomplicated; Z88.2 Allergy status to sulfonamides

== ENCOUNTER 2018-02-11 12:20 | Emergency (ER) | payer SELFPAY ==
[~2018-02-11] VITALS: Ht 160 cm; Wt 106.0 kg
[~2018-02-11 12:20] MED LIST changes: +PRED20TA2 PO; -PROM25TA9 PO
[2018-02-11 12:23] VITALS: TEMP 37.4; Ht 160 cm; Wt 106.0 kg
--- NOTE | 2018-02-11 12:35 | EMERGENCY ROOM VISIT NOTE ---
History Report prepared by Kevin: Reid Puckett Under the Supervision of: Dr. Jacques Chaney M.D. First contact with patient: 12:25 Chief Complaint: COUGH Stated Complaint: COUGH,CONGESTION,FEVER History of Present Illness The patient is a 22 year old female who presents to the Emergency Room with complaints of a persistent cough that began two days ago. She rates her discomfort as a 6/10 in severity. The patient states she also developed a productive cough with green mucous two days ago. She reports that she has been experiencing abdominal pain and nausea, which she believes is due to the productive cough. The patient states she also developed a fever of 102.3. She reports that she took NyQuil and Kellee Glidden for her symptoms without any relief. The patient denies blood in mucous, syncope, chest pain, shortness of breath, recent travel, taking BCP, recent surgeries, a possible , and a history of asthma. She states she currently smokes cigarettes every day. Source of History: patient Onset: two days ago Position: other (global) Symptom Intensity: 6/10 Quality: other (productive with green mucous) Timing: other (persistent) Modifying Factors (Relieving): other (NyQuil, Kellee Glidden) Associated Symptoms: + fevers, + nausea, + abdominal pain, No LOC, No chest pain, No SOB Note: Denies blood in mucous. Review of Systems See HPI for pertinent positives and negatives. A total of ten systems were reviewed and were otherwise negative. Past Medical & Surgical Medical Problems: (1) DEPRESSIVE DISORDER NEC (2) DEPRESSIVE DISORDER NEC Surgical Problems: (1) Hx of tonsillectomy Family History Cancer Social History Smoking Status: Current Every Day Smoker Alcohol Use: none Drug Use: none Marital Status: single Housing Status: lives with significant other Occupation Status: employed Current/Historical Medications Scheduled Albuterol (Ventolin Hfa), 2 PUFFS INH QID Scheduled PRN Benzonatate (Tessalon Perles), 100 MG PO TID PRN for Cough Allergies Coded Allergies: Sulfa Drugs (Unverified Allergy, Intermediate, HIVES and RASH, 02/11/18) Physical Exam Vital Signs Date Time Temp Pulse Resp B/P (MAP) Pulse Ox O2 Delivery O2 Flow Rate FiO2 02/11/18 13:43 98 20 125/65 97 02/11/18 12:39 97 Room Air 02/11/18 12:23 37.4 114 20 124/77 99 Room Air Physical Exam Physical Exam GENERAL: She is oriented to person, place, and time. She appears well- developed and well-nourished. She does not appear distressed. ____ HENT: Exam performed. Head: Normocephalic and atraumatic. Right Ear: External ear normal. No mastoid tenderness. Left Ear: External ear normal. No mastoid tenderness. Mouth/Throat: The oropharynx is clear and moist. No trismus in the jaw. No dental abscesses or uvula swelling. No oropharyngeal exudate or tonsillar abscesses. ____ EYES: Conjunctivae and EOM are normal. Pupils are equal, round, and reactive to light. Right eye exhibits no discharge. Left eye exhibits no discharge. No scleral icterus. ____ NECK: Normal range of motion. Neck supple. No JVD present. No spinous process tenderness present. No carotid bruit present. No rigidity. No tracheal deviation and normal range of motion present. No Brudzinski's sign and no Kernig 's sign noted. ____ CV: Normal rate, regular rhythm, normal heart sounds and intact distal pulses. There is no peripheral edema. Palpable radial pulses bue. ____ PULM/CHEST: Effort normal and breath sounds normal. No respiratory distress. No stridor. She has no wheezes. She has no rales. Chest Wall: She exhibits no tenderness. ____ ABD: The abdomen is soft. Bowel sounds are normal. She has no distension. No mass is present. There is no tenderness. There is no rebound, no guarding, no Canales's sign and no tenderness at McBurney's point. Rovsig negative MUSC/SKEL: Normal range of motion. There is no peripheral edema, tenderness or deformity. LYMPH: No cervical adenopathy. ____ NEURO: She is alert and oriented to person, place, and time. She has normal strength. No cranial nerve deficit or sensory deficit. Coordination and gait normal. GCS eye subscore is 4. GCS verbal subscore is 5. GCS motor subscore is 6. Cerebellar tests wnl. ____ SKIN: Skin is warm and dry. She is not diaphoretic. ____ PSYCH: She has a normal mood and affect. Her behavior is normal. Judgment and thought content normal. ____ Medical Decision & Procedures ER Provider Diagnostic Interpretation: Radiology results as stated below per my review and radiologist interpretation: CHEST 2 VIEWS ROUTINE HISTORY: cough COMPARISON: Chest 12/30/2017. FINDINGS: The lungs are clear. Cardiac silhouette is normal in size. No pleural effusions. No pneumothorax. IMPRESSION: No acute process. Electronically signed by: Bo Whitehead M.D. 02/11/2018 1:09 PM Dictated Date/Time: 02/11/2018 1:07 PM ED Course 1226: The patient was evaluated in room C01B. A complete history and physical exam was performed. 1526: I reevaluated the patient. Her vitals are stable. Her imaging was WNL. She will be discharged with Tessalon and an Albuterol inhaler. DISCHARGE - Plan of care discussed with patient and questions answered. The patient was given both verbal and printed discharge instructions. The patient verbalized understanding and ability to comply. The patient is to seek outpatient follow up as noted in the discharge instructions. The patient verbalized understanding and ability to comply. The patient is discharged in stable condition. The patient was instructed to return for worsening symptoms. Medical Decision Her vitals are stable. Her imaging was WNL. She will be discharged with Tessalon and an Albuterol inhaler. DISCHARGE - Plan of care discussed with patient and questions answered. The patient was given both verbal and printed discharge instructions. The patient verbalized understanding and ability to comply. The patient is to seek outpatient follow up as noted in the discharge instructions. The patient verbalized understanding and ability to comply. The patient is discharged in stable condition. The patient was instructed to return for worsening symptoms. Medication Reconcilliation Current Medication List: was personally reviewed by me Blood Pressure Screening Patient's blood pressure: Normal blood pressure Impression Primary Impression: URI (upper respiratory infection) Additional Impression: Cough Scribe Attestation The scribe's documentation has been prepared under my direction and personally reviewed by me in its entirety. I confirm that the note above accurately reflects all work, treatment, procedures, and medical decision making performed by me. The chart was completed utilizing [email or web address] voice recognition software. Grammatical errors, random word insertions, pronoun errors, and incomplete sentences are an occasional consequence of this system due to software limitations, ambient noise, and hardware issues. Any formal questions or concerns about the content, text, or information contained within the body of this dictation should be directly addressed to the physician for clarification. Departure Information Dispostion Home / Self-Care Prescriptions Albuterol (Ventolin Hfa) 60 Puffs/5400 Mcg Aers 2 PUFFS INH QID for 5 Days, #1 INHALER Prov: Jacques Chaney M.D. 02/11/18 Benzonatate (TESSALON PERLES) 100 Mg Cap 100 MG PO TID Y for Cough, #30 CAP Prov: Jacques Chaney M.D. 02/11/18 Referrals Liborio Logan M.D. (PCP) Forms HOME CARE DOCUMENTATION FORM, IMPORTANT VISIT INFORMATION Patient Instructions ED Upper Resp Infec No Abx Tx, My [facility] Additional Instructions Return to the emergency department if you develop fever greater than 100.4, cough up blood, develop shortness of breath, lose consciousness, severe chest pressure. Problem Qualifiers Primary Impression: URI (upper respiratory infection) URI type: unspecified viral URI Qualified Codes: J06.9 - Acute upper respiratory infection, unspecified
--- NOTE | 2018-02-11 13:10 | DIAGNOSTIC IMAGING REPORT ---
CHEST 2 VIEWS ROUTINE HISTORY: cough COMPARISON: Chest 12/30/2017. FINDINGS: The lungs are clear. Cardiac silhouette is normal in size. No pleural effusions. No pneumothorax. IMPRESSION: No acute process. Electronically signed by: Bo Whitehead M.D. 02/11/2018 1:09 PM Dictated Date/Time: 02/11/2018 1:07 PM
[2018-02-11] MEDS ORDERED: BENZ100C18 PO (13:28)
[2018-02-11] MEDS ORDERED: PRVHFAIN INH (13:28)
[2018-02-11 13:43] VITALS: BP 125/65; PULSE 98; O2SAT 97
== END 2018-02-11 13:43 | disposition home or self-care (01) ==
LOC: C.EDB 12:21 → C.EDC 13:43
DX: J06.9 Acute upper respiratory infection, unspecified (principal); F17.210 Nicotine dependence, cigarettes, uncomplicated; Z90.89 Acquired absence of other organs; Z88.2 Allergy status to sulfonamides